=== PATIENT | female | born 1965 | race Two or more races ===

== ENCOUNTER 2020-05-19 17:49 | Emergency (ER) | payer SELFPAY ==
--- NOTE | 2020-05-19 18:08 | NUR ---
CALLED TO TRIAGE,NO ANSWER
--- NOTE | 2020-05-19 18:21 | NUR ---
CALLED IN ED WAITING ROOM. PER ADMITTING PT LEFT.
== END 2020-05-19 18:22 | disposition left against medical advice (07) ==
LOC: ER 17:59
DX: Z53.21 Procedure and treatment not carried out due to patient leaving prior to being seen by health care provider (principal); R52 Pain, unspecified

== ENCOUNTER 2022-12-31 00:34 | Inpatient (IN) | payer MEDICAID, OTHER ==
[~2022-12-31] VITALS: Ht 167.6 cm; Wt 63.5 kg
[2022-12-31 01:53] LABS: BASOPHILS # (AUTO) 0.1 K/uL (0.0-0.2); BASOPHILS % (AUTO) 0.8 % (0.0-2.0); EOSINOPHILS # (AUTO) 0.2 K/uL (0.0-0.7); EOSINOPHILS % (AUTO) 3.3 % (0.0-6.0); HEMATOCRIT 38 % (33-45); HEMOGLOBIN 12.4 g/dL (11.5-14.8); LYMPHOCYTES # (AUTO) 2.3 K/uL (0.8-4.8); LYMPHOCYTES % (AUTO) 35.9 % (20.0-44.0); MEAN CORPUSCULAR HEMOGLOBIN 28 PG (26.0-33.0); MEAN CORPUSCULAR HGB CONC 33 g/dl (31.0-36.0); MEAN CORPUSCULAR VOLUME 87 fL (82-100); MONOCYTES # (AUTO) 0.4 K/uL (0.1-1.30); MONOCYTES % (AUTO) 6.3 % (2.0-12.0); NEUTROPHILS # (AUTO) 3.4 K/uL (1.8-8.9); NEUTROPHILS % (AUTO) 53.7 % (43.0-81.0); PLATELET COUNT (AUTO) 282 K/uL (150-450); RED BLOOD CELL COUNT(AUTO) 4.36 MIL/uL (4.0-5.2); RED CELL DISTRIBUTION WIDTH 13.8 % (11.5-15.0); WHITE BLOOD COUNT (AUTO) 6.4 K/uL (4.3-11.0)
[2022-12-31 02:10] LABS: ALANINE AMINOTRANSFERASE 23 U/L (12-78); ALBUMIN 3.4 g/dL (3.4-5.0); ALKALINE PHOSPHATASE 53 U/L (46-116); ASPARTATE AMINOTRANSFERASE 12 U/L (15-37); BILIRUBIN,DIRECT 0.1 mg/dL (0.0-0.2); BILIRUBIN,TOTAL 0.3 mg/dL (0.2-1.0); CALCIUM, SERUM 8.9 mg/dL (8.5-10.1); CARBON DIOXIDE 28 mmol/L (21-32); CHLORIDE 104 mmol/L (98-107); CREATININE 0.8 mg/dL (0.6-1.3); GLUCOSE 104 mg/dL (74-106); SODIUM SERUM 140 mmol/L (136-145); UREA NITROGEN, BLOOD 24 mg/dL (7-18)
[2022-12-31] MEDS ORDERED: ACETAMINOPHEN 325 MG TABLET PO PRN (04:30)
[2022-12-31] MEDS ORDERED: MORPHINE SULFATE INJ 2 MG/ML DISP.SYRIN IV PRN (04:30)
[2022-12-31] MEDS ORDERED: ONDANSETRON HCL/PF 4 MG/2 ML VIAL IVP PRN (04:30)
[2022-12-31] MEDS ORDERED: hydrALAZINE HCL IV 20 MG VIAL IV PRN (04:30)
[2022-12-31] MEDS: ASPIRIN 81 MG TAB.CHEW PO SCH (11:54)
[2022-12-31] MEDS: HEPARIN SODIUM, PORCINE 5000 UNITS/1 ML VIAL SQ SCH ×2 (11:55→22:11)
[2022-12-31 13:00] VITALS: BP 124/57; TEMP 98.6; O2SAT 95
[2022-12-31] MEDS ORDERED: IOHEXOL-350 100 ML VIAL IV ONE (15:18)
[2022-12-31] MEDS ORDERED: IV NS 0.9% 250 ML IV ONE (15:18)
[2022-12-31] MEDS ORDERED: NITROGLYCERIN 0.4 MG/TAB BOTTLE ONE (15:18)
[2022-12-31] MEDS ORDERED: CT SWABBABLE VALVE TRANS SET 1 EA INFUS.SET MC ONE (15:18)
[2022-12-31] MEDS ORDERED: METOPROLOL TARTRATE INJ 5 MG/5 ML AMPUL ONE (15:18)
[2022-12-31] MEDS ORDERED: NITROGLYCERIN 0.4 MG/TAB BOTTLE SL ONE (15:30)
[2022-12-31 16:00] VITALS: BP 109/64; TEMP 97.9; O2SAT 97
[2022-12-31 17:00] VITALS: BP 110/64; TEMP 97.9; O2SAT 97
[2022-12-31 21:00] VITALS: BP 130/58; TEMP 98.1; O2SAT 99
[2023-01-01 01:00] VITALS: BP 128/82; TEMP 98.2; O2SAT 95
[2023-01-01 05:00] VITALS: BP 113/59; TEMP 98.4; O2SAT 98
[2023-01-01 06:46] LABS: ALBUMIN 3.4 g/dL (3.4-5.0); BILIRUBIN,TOTAL 0.3 mg/dL (0.2-1.0); CALCIUM, SERUM 9.1 mg/dL (8.5-10.1); CREATININE 0.7 mg/dL (0.6-1.3); MAGNESIUM 2.2 mg/dL (1.8-2.4); PHOSPHORUS 4.6 mg/dL (2.5-4.9); POTASSIUM 4.2 mmol/L (3.5-5.1); TOTAL PROTEIN, SERUM 6.9 g/dL (6.4-8.2)
[2023-01-01 06:47] LABS: BASOPHILS % (AUTO) 0.7 % (0.0-2.0); EOSINOPHILS # (AUTO) 0.2 K/uL (0.0-0.7); EOSINOPHILS % (AUTO) 3.9 % (0.0-6.0); HEMATOCRIT 39 % (33-45); HEMOGLOBIN 12.7 g/dL (11.5-14.8); MEAN CORPUSCULAR HEMOGLOBIN 28 PG (26.0-33.0); MEAN CORPUSCULAR HGB CONC 33 g/dl (31.0-36.0); MEAN CORPUSCULAR VOLUME 86 fL (82-100); MONOCYTES # (AUTO) 0.3 K/uL (0.1-1.30); MONOCYTES % (AUTO) 5.4 % (2.0-12.0); NEUTROPHILS # (AUTO) 2.9 K/uL (1.8-8.9); PLATELET COUNT (AUTO) 283 K/uL (150-450); RED BLOOD CELL COUNT(AUTO) 4.48 MIL/uL (4.0-5.2); RED CELL DISTRIBUTION WIDTH 13.8 % (11.5-15.0); WHITE BLOOD COUNT (AUTO) 5.4 K/uL (4.3-11.0)
[2023-01-01 08:25] LABS: IRON, SERUM 71 ug/dl (50-175); TOTAL IRON BINDING CAPACITY 241 ug/dl (250-450)
[2023-01-01 08:38] LABS: FERRITIN 78 ng/mL (8-388)
[2023-01-01 09:00] VITALS: BP 126/73; TEMP 97.7; O2SAT 98
[2023-01-01] MEDS ORDERED: CT SWABBABLE VALVE TRANS SET 1 EA INFUS.SET MC ONE (09:52)
[2023-01-01] MEDS ORDERED: IV NS 0.9% 250 ML IV ONE (09:52)
[2023-01-01] MEDS ORDERED: IOHEXOL-350 100 ML VIAL IV ONE (09:52)
[2023-01-01] MEDS: ASPIRIN 81 MG TAB.CHEW PO SCH (10:02)
[2023-01-01] MEDS: HEPARIN SODIUM, PORCINE 5000 UNITS/1 ML VIAL SQ SCH (10:04)
[2023-01-01] MEDS ORDERED: HYDR-3972 PO (15:09)
[2023-01-01] MEDS ORDERED: ZOLP10TA2 PO (15:09)
[2023-01-01] MEDS ORDERED: PANT40TA2 PO (15:09)
[2023-01-01 17:00] VITALS: BP 114/72; TEMP 98.6; O2SAT 96
== END 2023-01-01 17:12 | disposition home or self-care (01) | DRG 241 ==
LOC: ER 00:36 → TRANSITION 04:29 → TELE1 06:08
PROVIDERS: ADMIT Nurse Practitioner Acute Care; ATTEND Nurse Practitioner Acute Care
DX: K29.70 Gastritis, unspecified, without bleeding (principal); G43.909 Migraine, unspecified, not intractable, without status migrainosus; Z88.0 Allergy status to penicillin; Z86.73 Personal history of transient ischemic attack (TIA), and cerebral infarction without residual deficits
CPT/HCPCS: 36415; 70496-TC; 70498-TC; 71045-TC; 75574; 80048-TC; 80053-TC; 80076-TC; 82728-TC; 83540-TC; 83735-TC; 84100-TC; 84484-TC; 85025-TC; 93307-TC; G0378; J1644; J2270; J2405; J3490; J7050; Q9967